=== PATIENT | female | born 1945 | race Caucasian/White ===

== ENCOUNTER 2017-10-21 13:42 | Emergency (ER) | payer OTHER ==
[~2017-10-21] VITALS: Ht 162.6 cm; Wt 81.6 kg
[2017-10-21 13:48] VITALS: BP 139/87
--- NOTE | 2017-10-21 14:01 | NUR ---
72 Y/O F BIB [facility] [facility] WITH C/O DIARRHEA X 3 DAYS WITH GENERALYZED WEAKNESS, DIZZY, NAUSEA, DRY MOUTH HX; THYROID DZ, HIGH CHOLESTEROL RX; LEVOTHYROXIN, SIMVASTATINPT;SKIN IS INTACT, PINK/WARM/DRY; AAOX4, PERRL, WITH EVEN AND STEADY GAIT; LUNGS CLEAR BL, BREATHING UNLABORED; HR EVEN AND REGULAR, BL PERIPHERAL PULSES PRESENT; BS ACTIVE X4, NO TENDERNESS TO PALPATION, NO HEPATOSPLENOMEGALLY PALPATED, RESONANT TO PERCUSSION; PT DENIES ANY FEVER, CP, SOB, OR COUGH AT THIS TIME; PT STATES 0/10 PAIN AT THIS TIME; VSS; PATIENT POSITIONED FOR COMFORT; HOB ELEVATED; BEDRAILS UP X2; BED DOWN.
[2017-10-21] MEDS ORDERED: NACL 0.9% 1,000 ML IV ONE (14:35)
[2017-10-21] MEDS ORDERED: ONDANSETRON 4 MG/2 ML VIAL IVP ONE (14:35)
--- NOTE | 2017-10-21 15:03 | NUR ---
pt resting on hospital gurney at this time w/ dtr at bedside. pt vss, rr even and unlabored. safety precautions in place. will continue to monitor.
[2017-10-21 15:37] LABS: ALBUMIN 3.9 g/dL (3.4-5.0); ANION GAP 12.8 (8-16); ASPARTATE AMINOTRANSFERASE 31 U/L (15-37); CARBON DIOXIDE 26.3 mmol/L (21-32); CHLORIDE 106 mmol/L (98-107); CREATININE 0.9 mg/dL (0.6-1.3); GLUCOSE 112 mg/dL (74-106); POTASSIUM 4.1 mmol/L (3.5-5.1); SODIUM SERUM 141 mmol/L (136-145); TOTAL BILIRUBIN 0.4 mg/dL (0.0-1.0); UREA NITROGEN, BLOOD 11 mg/dL (7-18)
[2017-10-21 15:51] LABS: PROTHROMBIN TIME 9.8 secs (10.8-13.4)
--- NOTE | 2017-10-21 16:00 | NUR ---
pt resting comfortably in [facility] at this time w/ vss and rr even and unlabored. dtr continues to be at the bedside at this time. safety precautions in place. will continue to monitor.
[2017-10-21 16:27] LABS: BASOPHILS % (AUTO) 1.1 % (0.0-2.0); EOSINOPHILS # (AUTO) 0.1 K/uL (0-0.4); EOSINOPHILS % (AUTO) 2.8 % (0.0-4.0); HEMATOCRIT 41.7 % (36-48); HEMOGLOBIN 14.1 g/dL (12.0-16.0); LYMPHOCYTES # (AUTO) 1.5 K/uL (2.5-16.5); LYMPHOCYTES % (AUTO) 34.2 % (20.5-51.1); MEAN CORPUSCULAR HEMOGLOBIN 31 pg (27-31); MEAN CORPUSCULAR HGB CONC 34 g/dL (33-37); MEAN CORPUSCULAR VOLUME 90.8 fL (80-94); MONOCYTES # (AUTO) 0.4 K/uL (0.8-1.0); MONOCYTES % (AUTO) 9.5 % (1.7-9.3); NEUTROPHILS # (AUTO) 2.2 K/uL (1.8-7.7); NEUTROPHILS % (AUTO) 52.4 % (42.2-75.2); PLATELET COUNT (AUTO) 179 K/uL (140-450); RED BLOOD CELL COUNT(AUTO) 4.59 MIL/uL (4.20-5.40); RED CELL DISTRIBUTION WIDTH 12.5 % (11.6-13.7); WHITE BLOOD COUNT (AUTO) 4.3 K/uL (4.8-10.8)
--- NOTE | 2017-10-21 16:55 | NUR ---
pt awaiting results/to be discharged at this time. pt sitting upright on [facility] speaking with dtr at this time w/ vss and rr even and unlabored. safety precautions in place. will continue to monitor.
[2017-10-21 17:16] LABS: APPEARANCE,URINE CLEAR (CLEAR); BILIRUBIN,URINE NEGATIVE (NEGATIVE); BLOOD, URINE NEGATIVE (NEGATIVE); COLOR,URINE STRAW (YELLOW); LEUKOCYTE ESTERASE ,URINE NEGATIVE (NEGATIVE); NITRITE, URINE NEGATIVE (NEGATIVE); PH,URINE 7.5 (5.0-9.0); UGLUCOSE NEGATIVE (NEGATIVE)
[2017-10-21 17:52] VITALS: BP 131/87
--- NOTE | 2017-10-21 17:53 | NUR ---
Patient discharged with v/s stable. Written and verbal after care instructions given and explained. Patient alert, oriented and verbalized understanding of instructions. Ambulatory with steady gait. All questions addressed prior to discharge. ID band removed. Patient advised to follow up with PMD. Rx of Lomotil given. Patient educated on indication of medication including possible reaction and side effects. Opportunity to ask questions provided and answered.
== END 2017-10-21 17:53 | disposition home or self-care (01) ==
LOC: MED 13:42
DX: R19.7 Diarrhea, unspecified (principal); R42 Dizziness and giddiness; R53.1 Weakness; E03.9 Hypothyroidism, unspecified; E78.5 Hyperlipidemia, unspecified
CPT/HCPCS: 36415; 70450; 71045; 80053; 81003; 83735; 83880; 84484; 85025; 85610; 85730; 93005; 96361; 96374; 99285; J2405; J7030; Q0092